=== PATIENT | female | born 1990 | race American Indian/Alaskan Native ===

== ENCOUNTER 2019-03-12 10:33 | Emergency (ER) | payer MEDICAID ==
--- NOTE | 2019-03-12 10:57 | Emergency Department Report ---
- General Chief complaint: Skin Rash Stated complaint: BREAKOUT ON FACE Time Seen by Provider: 03/12/19 10:46 Source: patient Mode of arrival: Ambulatory Limitations: No Limitations - History of Present Illness Initial comments: Patient is a 28-year-old female presents to the emergency room with complaints of a "breakout" to the left side of her face that began 3-4 days ago. she states initially it started as a small bump to the left side of her face and she continued to keep messing with her and attempted to pop it. She states now it has been scabbing, scaling, draining clear to yellow fluid. She denies any fever. she has a past medical history of high blood pressure and sickle cell trait. She states she has an allergy to Motrin. The patient states she has a Nexplanon as control. - Related Data Previous Rx's Medication Instructions Recorded Last Taken Type Clindamycin Phos/Benzoyl Perox 1 applic TP BID #1 gel..gram. 03/12/19 Unknown Rx [Clindamycin-Benzoyl Perox 1-5%] Doxycycline Hyclate [Doxycycline 100 mg PO BID 7 Days #14 tab 03/12/19 Unknown Rx Hyclate TAB] Allergies Allergy/AdvReac Type Severity Reaction Status Date / Time No Known Allergies Allergy Verified 07/10/13 04:25 Abscess Boil HPI - HPI Chief Complaint: Skin Rash Stated Complaint: BREAKOUT ON FACE Time Seen by Provider: 03/12/19 10:46 Home Medications: Previous Rx's Medication Instructions Recorded Last Taken Type Clindamycin Phos/Benzoyl Perox 1 applic TP BID #1 gel..gram. 03/12/19 Unknown Rx [Clindamycin-Benzoyl Perox 1-5%] Doxycycline Hyclate [Doxycycline 100 mg PO BID 7 Days #14 tab 03/12/19 Unknown Rx Hyclate TAB] Allergies/Adverse Reactions: Allergies Allergy/AdvReac Type Severity Reaction Status Date / Time No Known Allergies Allergy Verified 07/10/13 04:25 ED Review of Systems ROS: Stated complaint: BREAKOUT ON FACE Other details as noted in HPI Comment: All other systems reviewed and negative ED Past Medical Hx - Past Medical History Previous Medical History?: Yes Hx Hypertension: Yes Hx Diabetes: No Hx Deep Vein Thrombosis: No Hx Renal Disease: No Hx Sickle Cell Disease: Yes (Trait) Hx Seizures: No Hx Asthma: No Hx HIV: No - Surgical History Past Surgical History?: No - Social History Smoking Status: Never Smoker Substance Use Type: Alcohol - Medications Home Medications: Home Medications Medication Instructions Recorded Confirmed Last Taken Type Clindamycin Phos/Benzoyl Perox 1 applic TP BID #1 gel..gram. 03/12/19 Unknown Rx [Clindamycin-Benzoyl Perox 1-5%] Doxycycline Hyclate [Doxycycline 100 mg PO BID 7 Days #14 tab 03/12/19 Unknown Rx Hyclate TAB] ED Physical Exam - General Limitations: No Limitations General appearance: alert, in no apparent distress - Head Head exam: Present: atraumatic, normocephalic - Eye Eye exam: Present: normal appearance - ENT ENT exam: Present: mucous membranes moist - Respiratory Respiratory exam: Present: normal lung sounds bilaterally. Absent: respiratory distress, wheezes, rales, rhonchi, stridor, accessory muscle use, decreased breath sounds, prolonged expiratory - Cardiovascular Cardiovascular Exam: Present: regular rate, normal rhythm, normal heart sounds. Absent: systolic murmur, diastolic murmur, rubs, gallop - Neurological Exam Neurological exam: Present: alert, oriented X3 - Psychiatric Psychiatric exam: Present: normal affect, normal mood - Skin Skin exam: Present: warm, dry, other (two macules to the left side of the face erthematous, scaling, draining yellow fluid) ED Course Vital Signs 03/12/19 10:37 Temperature 98.3 F Pulse Rate 88 Respiratory 18 Rate O2 Sat by Pulse 99 Oximetry ED Medical Decision Making - Medical Decision Making Patient is a 28-year-old female presents to the emergency room with complaints of a "breakout" to the left side of her face that began 3-4 days ago. she states initially it started as a small bump to the left side of her face and she continued to keep messing with her and attempted to pop it. She states now it has been scabbing, scaling, draining clear to yellow fluid. She denies any fever. she has a past medical history of high blood pressure and sickle cell trait. She states she has an allergy to Motrin. The patient states she has a Nexplanon as control. pt is afebrile. on exam: two macules to the left side of the face erythematous, scaling, draining yellow fluid. appears to be acne that pt has gotten infected by using digital expression most likely due to skin rakan causing a cellulitis. pt given prescription for clindamycin gel and doxycycline. advised to please use medication as prescribed. Follow-up with a behavioral psychologist in next 2-3 days. Return to the emergency room for any new or wo rsening symptoms. - Differential Diagnosis cellulitis, acne, folliculitis, abscess, carbuncle Critical care attestation.: If time is entered above; I have spent that time in minutes in the direct care of this critically ill patient, excluding procedure time. ED Disposition Clinical Impression: Cellulitis Qualifiers: Site of cellulitis: face Qualified Code(s): L03.211 - Cellulitis of face Disposition: DC- TO HOME OR SELFCARE Is pt being admited?: No Does the pt Need Aspirin: No Condition: Stable Instructions: Cellulitis (ED), Acne (ED) Additional Instructions: Please use medication as prescribed. Follow-up with a behavioral psychologist in next 2-3 days. Return to the emergency room for any new or worsening symptoms. Keno Writer: Dr. Campos Hdz [address] [place] [id number] Prescriptions: Clindamycin Phos/Benzoyl Perox [Clindamycin-Benzoyl Perox 1-5%] 1 applic TP BID #1 gel..gram. Doxycycline Hyclate [Doxycycline Hyclate TAB] 100 mg PO BID 7 Days #14 tab Referrals: AUTUMN HAIR MD [Referring] - 2-3 Days Time of Disposition: 10:57 Print Language: FINNISH
== END 2019-03-12 11:15 | disposition home or self-care (01) ==
LOC: ED 10:33
DX: L03.211 Cellulitis of face (principal); I10 Essential (primary) hypertension; D57.3 Sickle-cell trait; Z79.899 Other long term (current) drug therapy
CPT/HCPCS: 99281

== ENCOUNTER 2019-12-27 19:43 | Emergency (ER) | payer MEDICARE ==
[2019-12-27] MEDS ORDERED: FAMOTIDINE 20 MG/2 ML INJ IV ONE (20:00)
[2019-12-27] MEDS ORDERED: ONDANSETRON 4 MG/2 ML INJ IV ONE ×2 (20:00→20:24)
[2019-12-27] MEDS ORDERED: DICYCLOMINE 20 MG/2 ML INJ IM ONE (20:00)
[2019-12-27] MEDS ORDERED: SODIUM CHLORIDE 0.9% 1000 ML 1,000 ML IV ONE (20:00)
[2019-12-27] MEDS ORDERED: KETOROLAC 30 MG/1 ML INJ IV ONE (20:01)
[2019-12-27 21:06] LABS: Basophils # (Auto) 0.1 K/mm3 (0.0-0.1); Basophils % (Auto) 0.8 % (0.0-1.8); Eosinophils % (Auto) 0.4 % (0.0-4.3); Hematocrit 44.2 % (30.3-42.9); Hemoglobin 14.9 gm/dl (10.1-14.3); Lymphocytes # (Auto) 2.2 K/mm3 (1.2-5.4); Lymphocytes % (Auto) 22.5 % (13.4-35.0); Mean Corpuscular HGB Conc 34 % (30-34); Mean Corpuscular Volume 94 fl (79-97); Monocytes # (Auto) 0.8 K/mm3 (0.0-0.8); Monocytes % (Auto) 8.4 % (0.0-7.3); Platelet Count 219 K/mm3 (140-440); Red Blood Count 4.71 M/mm3 (3.65-5.03); Red Cell Distribution Width 13.8 % (13.2-15.2)
[2019-12-27 21:25] LABS: Alanine Aminotransferase 23 units/L (7-56); Albumin 4.7 g/dL (3.9-5); BUN/Creatinine Ratio 13; Blood Urea Nitrogen 8 mg/dL (7-17); Calcium 9.6 mg/dL (8.4-10.2); Hemolysis Index 16
[2019-12-27 21:42] LABS: Bilirubin,Urine NEG (Negative); Blood,Urine MOD (Negative); Color,Urine Yellow (Yellow); Mucus,Urine 1+ /HPF; Protein,Urine <15 mg/dL mg/dL (Negative)
--- NOTE | 2019-12-27 23:11 | Ultrasound Report ---
ULTRASOUND ABDOMEN, LIMITED (RIGHT UPPER QUADRANT) INDICATION: RUQ pain. COMPARISON: None available. FINDINGS: Pancreas: Visualized portion shows no significant abnormality. Liver: Normal. Gallbladder: Normal. Bile ducts: Normal. Common Bile Duct measures 1 mm. Free fluid: None. Additional Findings: There is a 1 cm cyst in the right kidney IMPRESSION: 1. No sonographic abnormality of the right upper quadrant. Signer Name: Mendez Fitzgerald MD Signed: 12/27/2019 11:07 PM Workstation Name: [id number]
--- NOTE | 2019-12-28 00:07 | Emergency Department Report ---
ED N/V/D HPI - General Chief complaint: Abdominal Pain Stated complaint: VOMITING Time Seen by Provider: 12/27/19 19:56 Source: patient, EMS Mode of arrival: Stretcher Limitations: Physical Limitation - History of Present Illness Initial comments: Patient is a 29-year-old [place] female who is presenting with nausea vomiting throughout the day. Patient states she has some epigastric discomfort as well. States pain is 6 out of 10 in severity. Patient's last meal was last night was fried chicken and macaroni cheese. Patient states she is been able to keep anything down throughout the day. States that abdominal pain is crampy in nature. She denies fevers chills cough cold congestion at this time. - Related Data Previous Rx's Medication Instructions Recorded Last Taken Type Doxycycline Hyclate [Doxycycline 100 mg PO BID 7 Days #14 tab 03/12/19 Unknown Rx Hyclate TAB] Mupirocin [Bactroban 2% OINT] 1 applic TP Q8H #1 tube 03/13/19 Unknown Rx Fluconazole (Nf) [Diflucan TAB] 150 mg PO ONCE #1 tablet 12/28/19 Unknown Rx Nitrofurantoin Mcculloch/M-Cryst 100 mg PO Q12HR #6 capsule 12/28/19 Unknown Rx [Macrobid CAP] Allergies Allergy/AdvReac Type Severity Reaction Status Date / Time No Known Allergies Allergy Verified 07/10/13 04:25 ED Review of Systems ROS: Stated complaint: VOMITING Other details as noted in HPI Comment: All other systems reviewed and negative ED Past Medical Hx - Past Medical History Previous Medical History?: Yes Hx Hypertension: Yes Hx Diabetes: No Hx Deep Vein Thrombosis: No Hx Renal Disease: No Hx Sickle Cell Disease: Yes (Trait) Hx Seizures: No Hx Asthma: No Hx HIV: No - Surgical History Past Surgical History?: No - Social History Smoking Status: Never Smoker Substance Use Type: None - Medications Home Medications: Home Medications Medication Instructions Recorded Confirmed Last Taken Type Doxycycline Hyclate [Doxycycline 100 mg PO BID 7 Days #14 tab 03/12/19 Unknown Rx Hyclate TAB] Mupirocin [Bactroban 2% OINT] 1 applic TP Q8H #1 tube 03/13/19 Unknown Rx Fluconazole (Nf) [Diflucan TAB] 150 mg PO ONCE #1 tablet 12/28/19 Unknown Rx Nitrofurantoin Mcculloch/M-Cryst 100 mg PO Q12HR #6 capsule 12/28/19 Unknown Rx [Macrobid CAP] ED Physical Exam - General Limitations: Physical Limitation General appearance: alert, in no apparent distress - Head Head exam: Present: atraumatic, normocephalic - Eye Eye exam: Present: normal appearance, PERRL, EOMI - ENT ENT exam: Present: mucous membranes moist - Neck Neck exam: Present: normal inspection - Respiratory Respiratory exam: Present: normal lung sounds bilaterally. Absent: respiratory distress, wheezes, rales, rhonchi - Cardiovascular Cardiovascular Exam: Present: regular rate, normal rhythm, normal heart sounds. Absent: systolic murmur, diastolic murmur, rubs, gallop - GI/Abdominal GI/Abdominal exam: Present: soft, normal bowel sounds. Absent: distended, tenderness, guarding, rebound - Extremities Exam Extremities exam: Present: normal inspection - Back Exam Back exam: Present: normal inspection - Neurological Exam Neurological exam: Present: alert, oriented X3 - Psychiatric Psychiatric exam: Present: normal affect, normal mood - Skin Skin exam: Present: warm, dry, intact, normal color. Absent: rash ED Course Vital Signs 12/27/19 12/27/19 20:00 20:12 Temperature 98.7 F Pulse Rate 84 Respiratory 16 19 Rate Blood Pressure 142/100 [Left] O2 Sat by Pulse 100 Oximetry ED Medical Decision Making - Lab Data Result diagrams: 12/27/19 20:14 12/27/19 20:14 Lab Results 12/27/19 12/27/19 12/27/19 Range/Units 20:14 20:14 20:14 WBC 9.8 (4.5-11.0) K/mm3 RBC 4.71 (3.65-5.03) M/mm3 Hgb 14.9 H (10.1-14.3) gm/dl Hct 44.2 H (30.3-42.9) % MCV 94 (79-97) fl MCH 32 (28-32) pg MCHC 34 (30-34) % RDW 13.8 (13.2-15.2) % Plt Count 219 (140-440) K/mm3 Lymph % (Auto) 22.5 (13.4-35.0) % Mcculloch % (Auto) 8.4 H (0.0-7.3) % Eos % (Auto) 0.4 (0.0-4.3) % Baso % (Auto) 0.8 (0.0-1.8) % Lymph # 2.2 (1.2-5.4) K/mm3 Mcculloch # 0.8 (0.0-0.8) K/mm3 Eos # 0.0 (0.0-0.4) K/mm3 Baso # 0.1 (0.0-0.1) K/mm3 Seg Neutrophils % 67.9 (40.0-70.0) % Seg Neutrophils # 6.6 (1.8-7.7) K/mm3 Sodium 139 (137-145) mmol/L Potassium 3.8 (3.6-5.0) mmol/L Chloride 102.7 (98-107) mmol/L Carbon Dioxide 22 (22-30) mmol/L Anion Gap 18 mmol/L BUN 8 (7-17) mg/dL Creatinine 0.6 L (0.7-1.2) mg/dL Estimated GFR > 60 ml/min BUN/Creatinine Ratio 13 % Glucose 81 (65-100) mg/dL Calcium 9.6 (8.4-10.2) mg/dL Total Bilirubin 0.40 (0.1-1.2) mg/dL AST 34 (5-40) units/L ALT 23 (7-56) units/L Alkaline Phosphatase 66 (35-129) units/L Total Protein 7.4 (6.3-8.2) g/dL Albumin 4.7 (3.9-5) g/dL Albumin/Globulin Ratio 1.7 % Lipase 13 (13-60) units/L HCG, Qual Negative (Negative) Urine Color (Yellow) Urine Turbidity (Clear) Urine pH (5.0-7.0) Ur Specific Morrison (1.003-1.030) Urine Protein (Negative) mg/dL Urine Glucose (UA) (Negative) mg/dL Urine Ketones (Negative) mg/dL Urine Blood (Negative) Urine Nitrite (Negative) Urine Bilirubin (Negative) Urine Urobilinogen (<2.0) mg/dL Ur Leukocyte Esterase (Negative) Urine WBC (Auto) (0.0-6.0) /HPF Urine RBC (Auto) (0.0-6.0) /HPF U Epithel Cells (Auto) (0-13.0) /HPF Urine Mucus /HPF Urine Yeast (Budding) /HPF 12/27/19 Range/Units Unknown WBC (4.5-11.0) K/mm3 RBC (3.65-5.03) M/mm3 Hgb (10.1-14.3) gm/dl Hct (30.3-42.9) % MCV (79-97) fl MCH (28-32) pg MCHC (30-34) % RDW (13.2-15.2) % Plt Count (140-440) K/mm3 Lymph % (Auto) (13.4-35.0) % Mcculloch % (Auto) (0.0-7.3) % Eos % (Auto) (0.0-4.3) % Baso % (Auto) (0.0-1.8) % Lymph # (1.2-5.4) K/mm3 Mcculloch # (0.0-0.8) K/mm3 Eos # (0.0-0.4) K/mm3 Baso # (0.0-0.1) K/mm3 Seg Neutrophils % (40.0-70.0) % Seg Neutrophils # (1.8-7.7) K/mm3 Sodium (137-145) mmol/L Potassium (3.6-5.0) mmol/L Chloride (98-107) mmol/L Carbon Dioxide (22-30) mmol/L Anion Gap mmol/L BUN (7-17) mg/dL Creatinine (0.7-1.2) mg/dL Estimated GFR ml/min BUN/Creatinine Ratio % Glucose (65-100) mg/dL Calcium (8.4-10.2) mg/dL Total Bilirubin (0.1-1.2) mg/dL AST (5-40) units/L ALT (7-56) units/L Alkaline Phosphatase (35-129) units/L Total Protein (6.3-8.2) g/dL Albumin (3.9-5) g/dL Albumin/Globulin Ratio % Lipase (13-60) units/L HCG, Qual (Negative) Urine Color Yellow (Yellow) Urine Turbidity Slightly-cloudy (Clear) Urine pH 5.0 (5.0-7.0) Ur Specific Morrison 1.016 (1.003-1.030) Urine Protein <15 mg/dl (Negative) mg/dL Urine Glucose (UA) Neg (Negative) mg/dL Urine Ketones Neg (Negative) mg/dL Urine Blood Mod (Negative) Urine Nitrite Neg (Negative) Urine Bilirubin Neg (Negative) Urine Urobilinogen 2.0 (<2.0) mg/dL Ur Leukocyte Esterase Sm (Negative) Urine WBC (Auto) 7.0 H (0.0-6.0) /HPF Urine RBC (Auto) 5.0 (0.0-6.0) /HPF U Epithel Cells (Auto) 10.0 (0-13.0) /HPF Urine Mucus 1+ /HPF Urine Yeast (Budding) Few /HPF - Medical Decision Making Patient was hydrated and given antiemetics and she is feeling better. Ultrasound showed no evidence of gallstones at this time. Patient likely with mild gastritis but of unknown etiology. Patient be discharged home with medication for symptomatic relief. Patient also has evidence of a mild UTI. Is asymptomatic patient be given 3 days of Macrobid and Diflucan. Critical care attestation.: If time is entered above; I have spent that time in minutes in the direct care of this critically ill patient, excluding procedure time. ED Disposition Clinical Impression: Acute gastritis Qualifiers: Gastritis type: unspecified gastritis Gastritis bleeding: without bleeding Qualified Code(s): K29.00 - Acute gastritis without bleeding UTI (urinary tract infection) Qualifiers: Urinary tract infection type: acute cystitis Hematuria presence: without hematuria Qualified Code(s): N30.00 - Acute cystitis without hematuria Nausea & vomiting Qualifiers: Vomiting type: unspecified Vomiting Intractability: non-intractable Qualified Code(s): R11.2 - Nausea with vomiting, unspecified Disposition: TO HOME OR SELFCARE Is pt being admited?: No Does the pt Need Aspirin: No Condition: Stable Instructions: Abdominal Pain (ED) Referrals: AUTUMN HAIR MD [Referring] - 3-5 Days Time of Disposition: 00:07
[2019-12-28 01:25] VITALS: BP 144/94
== END 2019-12-28 01:26 | disposition home or self-care (01) ==
LOC: ED 19:43
DX: K29.00 Acute gastritis without bleeding (principal); N39.0 Urinary tract infection, site not specified; R11.2 Nausea with vomiting, unspecified; I10 Essential (primary) hypertension; Z79.899 Other long term (current) drug therapy
CPT/HCPCS: 36415; 76705; 80053; 81001; 83690; 84703; 85025; 96361; 96372; 96374; 96375; 99284; J0500; J1885; J2405; J7030